=== PATIENT | female | born 1955 | race Caucasian/White ===

== ENCOUNTER 2024-02-11 13:07 | Outpatient (CLI) | payer MEDICARE | END 2024-02-11 13:08 | disposition home or self-care (01) | LOC: CSHRAD 13:07 | PROVIDERS: ATTEND Physician Assistant | DX: Z85.118 Personal history of other malignant neoplasm of bronchus and lung (principal); J98.4 Other disorders of lung | CPT/HCPCS: 71046; 87070; 87635 ==

== ENCOUNTER 2024-04-01 13:35 | Emergency (ER) | payer MEDICARE | END 2024-04-01 14:32 | disposition home or self-care (01) | LOC: CSHERS 13:35 | DX: M79.642 Pain in left hand (principal) | CPT/HCPCS: 99283 ==